=== PATIENT | male | born 1960 | race Caucasian/White ===

== ENCOUNTER 2017-04-05 09:36 | Emergency (ER) | payer MEDICAID ==
[2017-04-05 10:08] LABS: BASOPHIL# 0.1 X 10^3uL (0.0-0.1); BASOPHILS 0.6 % (0.0-2.0); EOSINOPHILS 2.9 % (0.0-6.0); EOSINOPHILS# 0.3 X 10^3uL (0.0-0.4); HEMATOCRIT 46.3 % (42.0-54.0); HEMOGLOBIN 15.8 g/dL (14.0-18.0); LYMPHOCYTES 17.3 % (20.0-40.0); LYMPHOCYTES# 1.5 X 10^3uL (0.8-3.8); MEAN CELL VOLUME 86.5 fL (80.0-100.0); MEAN CORPUS. HGB CONCENTRATION 34.2 g/dL (32.0-36.0); MEAN CORPUSCULAR HEMOGLOBIN 29.5 pg (29.0-35.0); MONOCYTES 7.3 % (2.0-10.0); MONOCYTES# 0.6 X 10^3uL (0.2-1.0); NEUTROPHILS 71.9 % (54.0-75.0); NEUTROPHILS# 6.3 X 10^3uL (2.6-6.7); PLATELET COUNT 255 X 10^3uL (130-440); RED BLOOD COUNT 5.36 X 10^6uL (4.20-6.10); RED CELL DISTRIBUTION WIDTH 12.5 % (11.5-14.5); WHITE BLOOD COUNT 8.8 X 10^3uL (3.9-10.7)
[2017-04-05 10:10] LABS: BLOOD UREA NITROGEN 29 mg/dL (9-20); CALCIUM 8.8 mg/dL (8.4-10.2); CHLORIDE 100 mmol/L (98-107); CREATININE 1.4 mg/dL (0.7-1.3); EST GLOMERULAR FILTRATION RATE 56 mL/min; MAGNESIUM 1.9 mg/dL (1.6-2.3); POTASSIUM 4.3 mmol/L (3.5-5.1); SODIUM 136 mmol/L (137-145)
--- NOTE | 2017-04-05 10:11 | RADIOLOGY REPORT ---
HISTORY: Chest pain COMPARISON: None. FINDINGS: 1 view of the chest obtained. The heart size is within normal limits. Lungs are underexpanded but wit hout acute infiltrate. There is mild diffuse airways thickening. Mild degenerative disease involves t he acromioclavicular joint. There is no pneumothorax. IMPRESSION: Pulmonary underexpansion, without acute disease. Final Electronic Signature: This report was electronically signed by Jonny Dale MD on 04/05/2017 10:09 AM. nakia /
[2017-04-05 10:29] LABS: INR 1.1
[2017-04-05 10:30] LABS: GLUCOSE 281 mg/dL (70-100); TROPONIN I < 0.012 ng/mL (0.00-0.034)
--- NOTE | 2017-04-05 11:47 | ER NURSING DOCUMENTATION ---
Nurse's Notes Name:Rafi Peralta Age:56 yrs Sex:Male :1960 Arrival Date:04/05/2017 Time:09:36 BedRadiology Private MD:Gaston Huffman Diagnosis:Chest Pain Presentation: 04/05 09:40 Acuity: SHAREE 2 st 09:49 Presenting complaint: [facility] Staff reports patient had sudden onset of cp with left arm lpr and jaw pain. Transition of care: [facility]. AIR CAT ACTIVATION no. 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 09:49 Method Of Arrival: Wheelchair lpr Triage Assessment: 09:50 General: Appears uncomfortable, Behavior is cooperative. Pain: Complains of pain in lpr chest and left arm and left ljaw. EENT: Oral mucosa is moist. Neuro: Level of Consciousness is awake, alert, obeys commands, Oriented to person, place, event. Cardiovascular: Capillary refill < 3 seconds Reports no chest pain at this time Rhythm is sinus rhythm. Respiratory: Airway is patent Respiratory effort is even, unlabored, Respiratory pattern is regular, symmetrical. GI: No deficits noted. : No deficits noted. Derm: Skin is healthy with good turgor, Skin is pink, warm & dry. Musculoskeletal: Circulation, motion, and sensation intact Capillary refill < 3 seconds. Historical: - Allergies: Simvastatin; Norvasc; - Home Meds: 1. pravastatin 20 mg oral tab 1 tab once daily 2. aspirin 81 mg oral tab 1 tab once daily 3. metformin 1,000 mg oral tab 1 tab 2 times per day 4. citalopram 40 mg oral tab 1 tab once daily 5. felodipine 5 mg oral Tb24 1 tab once daily 6. hydrochlorothiazide 12.5 mg oral tab 1 tab once daily 7. Levemir flexpen 8. lispro 9. latanoprost 10. valsartan 320 mg oral tab 1 tab once daily - PMHx: Diabetes - IDDM; Hypertension; Hyperlipidemia; ANXIETY; DEPRESSION; GLAUCOMA; OBESITY; SLEEP APNEA; - PSHx: CARPAL TUNNEL REPAIR; Angiogram; LUMBAR SPINE SURGERY; - Tetanus: < 10 years. - Ebola Screening: : No symptoms or risks identified at this time. . - Social history: Smoking status: Patient states was never smoker of tobacco. - Immunization history: Pneumococcal vaccine is up to date, Flu Vaccine < 1 year. Screenin:08 Infectious Disease Risk None. Abuse screen: Denies threats or abuse. Denies injuries lp from another. Nutritional screening: No deficits noted. Assessment: 09:58 Pain: Pain does not radiate. Pain began 1 hour ago. lp Vital Signs: 09:45 BP 136 / 79 (auto/); lpr 09:46 Pulse 67 MON; Resp 22; Pulse Ox 95% ; lpr 09:51 BP 136 / 79; Pulse 65; Resp 22; Temp 98(O); Pulse Ox 93% on 2 lpm NC; Weight 106.14 kg lpr (R); Height 5 ft. 9 in. (175.26 cm) (R); Pain 0/10; 10:15 BP 127 / 85 (auto/); lpr 10:16 Pulse 62 MON; Resp 17; Pulse Ox 94% ; Pain 0/10; lpr 10:36 BP 130 / 75 (auto/); lp 10:36 Pulse 62 MON; Resp 16; Pulse Ox 95% ; lp 11:00 BP 128 / 71 (auto/); lp 11:01 Pulse 60 MON; Resp 16; Pulse Ox 94% ; lp 09:51 Body Mass Index 34.56 (106.14 kg, 175.26 cm) lpr ED Course: 09:38 Patient arrived in ED. ama 09:39 Gaston Huffman MD is Private Physician. ama 09:40 Nano Cao, RN is Primary Nurse. st 09:[address] 09:40 EKG done. (by ED staff). Reviewed by Lavelle Reyna MD. Inserted saline lock: 20 gauge in lpr right antecubital area and blood collected. 09:48 Lavelle Reyna MD is Attending Physician. sc 09:56 Port Xray Completed. hz 10:08 Oxygen Oxygen administration via nasal cannula @ 2L/min. lp 10:08 Valuables Remains with patient Patient has correct armband on for positive lp identification. Placed in gown. Bed in low position. Call light in reach. Cardiac Monitoring On for Nurse Monitoring only. Pulse Ox - RN Monitoring Only NIBP On - RN Monitoring Only. 10:23 EKG attached lp 10:59 Gaston Huffman MD is Referral Physician. sc Administered Medications: No medications were administered Outcome: 10:59 Discharge ordered by . sc 11:25 Discharged to shelter. Report called to Floor JASON boone 11:25 Condition: stable 11:25 Instructed on discharge instructions, follow up and referral plans. 11:46 Patient left the ED. lp Signatures: Nano Cao RN RN st Pavlish, Lena, RN RN lp Chew, Scott, MD MD sc Roberts, Leslie, RN RN lpr Averdick, Andrew, Reg Reg amMiryam Cordova
--- NOTE | 2017-04-05 11:47 | ER PHYSICIAN DOCUMENTATION ---
Physician Documentation [facility] Name:Rafi Peralta Age:56 yrs Sex:Male :1960 Arrival Date:04/05/2017 [facility]09[facility] MD:Gaston Huffman Lavelle Reeder Disposition: 04/05 10:12 Critical Care: not applicable. sc Disposition: 04/05/17 10:59 Discharged to [facility]. Impression: Chest Pain. - Condition is Good. - Discharge Instructions: CHEST PAIN, Uncertain Cause. - Medical Reconciliation form form. - Follow up: Gaston Huffman MD; When: Upon discharge from the Emergency Department; Reason: Continuance of care. - Problem is new. - Symptoms are resolved. HPI: 10:08 This 56 yrs old Male presents to ER via Wheelchair with complaints of Chest sc Pain. 10:08 The patient or guardian reports chest pain that is located primarily in the anterior sc chest wall. Onset: just prior to arrival. The pain radiates to the left arm, left jaw. There has been no movement of pain. Associated signs and symptoms: The patient has no apparent associated signs or symptoms. 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 Duration: The patient or guardian reports a single episode, that lasted 10 minute(s). Modifying factors: The symptoms are alleviated by nothing. Severity of pain: At its worst the pain was moderate in the emergency department the pain has resolved. Historical: - Allergies: Simvastatin; Norvasc; - Home Meds: 1. pravastatin 20 mg oral tab 1 tab once daily 2. aspirin 81 mg oral tab 1 tab once daily 3. metformin 1,000 mg oral tab 1 tab 2 times per day 4. citalopram 40 mg oral tab 1 tab once daily 5. felodipine 5 mg oral Tb24 1 tab once daily 6. hydrochlorothiazide 12.5 mg oral tab 1 tab once daily 7. Levemir flexpen 8. lispro 9. latanoprost 10. valsartan 320 mg oral tab 1 tab once daily - PMHx: Diabetes - IDDM; Hypertension; Hyperlipidemia; ANXIETY; DEPRESSION; GLAUCOMA; OBESITY; SLEEP APNEA; - PSHx: CARPAL TUNNEL REPAIR; Angiogram; LUMBAR SPINE SURGERY; - Tetanus: < 10 years. - Ebola Screening: : No symptoms or risks identified at this time. . - Social history: Smoking status: Patient states was never smoker of tobacco. - Immunization history: Pneumococcal vaccine is up to date, Flu Vaccine < 1 year. ROS: 10:09 Constitutional: Negative for fever, chills, and weight loss. sc Eyes: Negative for injury, pain, redness, and discharge. ENT: Negative for injury, pain, and discharge. Neck: Negative for injury, pain, and swelling. Respiratory: Negative for shortness of breath, cough, wheezing, and pleuritic chest pain. Abdomen/GI: Negative for abdominal pain, nausea, vomiting, diarrhea, and constipation. Back: Negative for injury and pain. MS/Extremity: Negative for injury and deformity. Skin: Negative for injury, rash, and discoloration. 10:09 Neuro: Negative for headache, weakness, numbness, tingling, and seizure. sc 10:09 Cardiovascular: Positive for chest pain. Exam: Constitutional: This is a well developed, well nourished patient who is awake, alert, and in no acute distress. Head/Face: Normocephalic, atraumatic. Eyes: Pupils equal round and reactive to light, extra-ocular motions intact. Lids and lashes normal. Conjunctiva and sclera are non-icteric and not injected. Cornea within normal limits. Periorbital areas with no swelling, redness, or edema. ENT: Nares patent. No nasal discharge, no septal abnormalities noted. Tympanic membranes are normal and external auditory canals are clear. Oropharynx with no redness, swelling, or masses, exudates, or evidence of obstruction, uvula midline. Mucous membranes moist. Neck: Trachea midline, no thyromegaly or masses palpated, and no cervical lymphadenopathy. Supple, full range of motion without nuchal rigidity, or vertebral point tenderness. No meningismus. Chest/axilla: Normal chest wall appearance and motion. Nontender with no deformity. No lesions are appreciated. Abdomen/GI: Soft, non-tender, with normal bowel sounds. No distension or tympany. No guarding or rebound. No evidence of tenderness throughout. Back: No spinal tenderness. No costovertebral tenderness. Full range of motion. Skin: Warm, dry with normal turgor. Normal color with no rashes, no lesions, and no evidence of cellulitis. MS/ Extremity: Pulses equal, no cyanosis. Neurovascular intact. Full, normal range of motion, negative Homans's, calves equal bilaterally. 10:09 Neuro: Awake and alert, GCS 15, oriented to person, place, time, and situation. nv Cranial nerves II-XII grossly intact. Motor strength 5/5 in all extremities. Sensory grossly intact. Cerebellar exam normal. Normal gait. 10:09 Cardiovascular: Rate: normal, Rhythm: regular. 10:09 Respiratory: the patient does not display signs of respiratory distress, Respirations: normal, Breath sounds: are normal, clear throughout. Vital Signs: 09:45 BP 136 / 79 (auto/); lpr 09:46 Pulse 67 MON; Resp 22; Pulse Ox 95% ; lpr 09:51 BP 136 / 79; Pulse 65; Resp 22; Temp 98(O); Pulse Ox 93% on 2 lpm NC; Weight 106.14 kg lpr (R); Height 5 ft. 9 in. (175.26 cm) (R); Pain 0/10; 10:15 BP 127 / 85 (auto/); lpr 10:16 Pulse 62 MON; Resp 17; Pulse Ox 94% ; Pain 0/10; lpr 10:36 BP 130 / 75 (auto/); lp 10:36 Pulse 62 MON; Resp 16; Pulse Ox 95% ; lp 11:00 BP 128 / 71 (auto/); lp 11:01 Pulse 60 MON; Resp 16; Pulse Ox 94% ; lp 09:51 Body Mass Index 34.56 (106.14 kg, 175.26 cm) lpr MDM: 09:48 Patient medically screened. nv 10:10 Differential diagnosis: abnormal EKG, acute myocardial infarction, anxiety, chest wall sc pain, gastroesophageal reflux disease (GERD). Patient took aspirin within the past 24 hours. Patient did not receive fibrinolytic due to na. Data reviewed: vital signs, nurses notes, lab test result(s), EKG, radiologic studies, and as a result, I will continue to observe the patient. 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 ECG:. 10:23 EKG attached lp 10:55 Physician consultation: Gaston Huffman MD was called at 10:55, was contacted at 10:55, nv regarding patient's condition, and will see patient shortly, Dr. Huffman feels less disruptive for pt to return to [facility] and get repeat EKG and trop there with cardiology consult. Patient still pain free.. 04/05 10:22 Order name: DDIMER; Complete Time: 10:52 EDMS 04/05 10:52 Interpretation: Normal. nv 04/05 10:30 Order name: CBC AUTO DIF, MDIF/RMOR IF IND; Complete Time: 10:52 EDMS 04/05 10:52 Interpretation: Normal. nv 04/05 10:32 Order name: BASIC METABOLIC PANEL; Complete Time: 10:52 EDMS 04/05 10:52 Interpretation: Normal Except: BLOOD UREA NITROGEN 29; CREATININE 1.4. nv 04/05 10:32 Order name: MAGNESIUM; Complete Time: 10:52 EDMS 04/05 10:52 Interpretation: Normal. nv 04/05 10:32 Order name: TROPONIN I; Complete Time: 10:52 EDMS 04/05 10:52 Interpretation: Normal. nv 04/05 10:33 Order name: PROTIME/INR; Complete Time: 10:52 EDMS 04/05 10:52 Interpretation: Normal. nv 04/05 10:13 Order name: CHEST; SINGLE VIEW [id number]; Complete Time: 10:52 EDMS 04/05 10:52 Interpretation: Normal. nv 04/05 09:49 Order name: 12-lead EKG; Complete Time: 10:25 nv 04/05 09:49 Order name: Iv Saline Lock; Complete Time: 10:25 nv 04/05 09:49 Order name: Place Patient On Monitor; Complete Time: 10:25 nv 04/05 09:49 Order name: Pulse Ox Continuous; Complete Time: 10:25 nv EC:10 Rate is 68 beats/min. Rhythm is regular, Normal Sinus Rhythm with Left bundle branch sc block. QRS [place] is Normal. OR interval is normal. QRS interval is prolonged at .12 msec. QT interval is normal. Q waves are Present. Q waves are Old. T waves are Normal. No ST changes noted. Clinical impression: Abnormal EKG without significant change. Interpreted by me. Reviewed by me. Dispensed Medications: No medications were administered Signatures: Anita Carmona RN RN lp Lavelle Reyna MD MD sc Roberts, Leslie, RN RN lpr
== END 2017-04-05 11:47 ==
LOC: ER 09:36
DX: R07.9 Chest pain, unspecified (principal); R68.84 Jaw pain; M79.602 Pain in left arm; I10 Essential (primary) hypertension; E11.9 Type 2 diabetes mellitus without complications; E66.9 Obesity, unspecified; Z79.82 Long term (current) use of aspirin; Z79.899 Other long term (current) drug therapy
CPT/HCPCS: 71010; 80048; 83735; 84484; 85025; 85379; 85610; 93005; 99284

== ENCOUNTER 2017-04-16 13:14 | Emergency (ER) | payer MEDICAID ==
[2017-04-16] MEDS ORDERED: ALTEPLASE 100 MG/100 ML VIAL IV ONE (13:59)
[2017-04-16 14:03] LABS: BASOPHIL# 0.1 X 10^3uL (0.0-0.1); BASOPHILS 0.7 % (0.0-2.0); EOSINOPHILS 3.1 % (0.0-6.0); EOSINOPHILS# 0.3 X 10^3uL (0.0-0.4); HEMATOCRIT 45.2 % (42.0-54.0); HEMOGLOBIN 15.6 g/dL (14.0-18.0); LYMPHOCYTES 17.3 % (20.0-40.0); LYMPHOCYTES# 1.7 X 10^3uL (0.8-3.8); MEAN CELL VOLUME 86.7 fL (80.0-100.0); MEAN CORPUS. HGB CONCENTRATION 34.6 g/dL (32.0-36.0); MEAN PLATELET VOLUME 8.8 fL (7.4-10.4); MONOCYTES 8.1 % (2.0-10.0); MONOCYTES# 0.8 X 10^3uL (0.2-1.0); NEUTROPHILS 70.8 % (54.0-75.0); RED BLOOD COUNT 5.22 X 10^6uL (4.20-6.10); RED CELL DISTRIBUTION WIDTH 12.4 % (11.5-14.5); WHITE BLOOD COUNT 9.9 X 10^3uL (3.9-10.7)
--- NOTE | 2017-04-16 14:08 | CT REPORT ---
HISTORY: Numbness COMPARISON: 12/08/2015 TECHNIQUE: Axial non-contrast images obtained from skull vertex through foramen magnum. Dose reduction technique was utilized. FINDINGS: There is chronic encephalomalacia in the left cerebellar hemisphere compatible with old infarct. Mode rate volume loss and patchy subcortical white matter hypoattenuation again seen. There is a slightly greater degree of focal subcortical white matter hypoattenuation in the right parietal region on seri es 2 image 22 however the overlying cortex appears intact. An interval subcortical infarct is possibl e and may warrant further characterization with a dedicated MRI. There is also a new age indeterminan t subcortical infarct in the left ortiz radiata on series 2 image 22. No large acute cortical infarct seen. No hemorrhage or midline shift. No mass lesion observed. Chroni c right thalamus lacunar infarct is seen on series 2 image 18 which appears unchanged. There appears to be a chronic left pontine infarct, unchanged from prior. Intracranial atherosclerosis is present. No asymmetrically dense vessel seen. No extra-axial fluid co llection. The skull base and the calvarium appear intact. Paranasal sinuses demonstrate a retention cyst in the left maxillary sinus but appear otherwise normal. Mastoid air cells are normal. IMPRESSION: 1. Extensive age accelerated white matter disease. 2. There is a new age indeterminant infarct in the left ortiz radiata and a greater degree of subcor tical white matter hypoattenuation the right parietal lobe with interval subcortical infarct not excl uded. This may warrant further characterization with an MRI. 3. Additional chronic infarcts are unchanged as detailed above. 4. No intracranial hemorrhage, midline shift or mass lesion. Final Electronic Signature: This report was electronically signed by Felice Pimentel MD on 04/16/2017 2:06 PM. sameer /
[2017-04-16 14:22] LABS: POTASSIUM 4.2 mmol/L (3.5-5.1)
[2017-04-16] MEDS ORDERED: NORMAL SALINE 100 ML IV ONE (14:49)
--- NOTE | 2017-04-16 14:55 | ER NURSING DOCUMENTATION ---
Nurse's Notes [facility] Name:Rafi Peralta Age:56 yrs Sex:Male :1960 Arrival Date:04/16/2017 Time:13:14 Bed4 Private MD:Gaston Huffman Diagnosis:Cerebrovascular Accident (CVA) Presentation: 04/16 13:18 Acuity: SHAREE 2 la 13:18 Presenting complaint: radiology director at [facility] having lunch with pt. states prior to la noon he was acting WNLs, around noon she noted that he was drooling liquid out on the left side of his mouth and had a hard time swallowing. pt with left sided facial droop, tongue deviates to the left, right arm drift, speech slurred, left side of face feels numb. Transition of care: [facility]. 13:18 Method Of Arrival: Wheelchair la 14:18 Time Last Known Well for patient was 1200. la Triage Assessment: 13:18 The onset of the patients symptoms was less than three hours ago. la 13:59 General: Appears comfortable. la Historical: - Allergies: Simvastatin; Norvasc; - Home Meds: 1. pravastatin 20 mg oral tab 1 tab once daily 2. aspirin 81 mg oral tab 1 tab once daily 3. metformin 1,000 mg oral tab 1 tab 2 times per day 4. citalopram 40 mg oral tab 1 tab once daily 5. felodipine 5 mg oral Tb24 1 tab once daily 6. hydrochlorothiazide 12.5 mg oral tab 1 tab once daily 7. Levemir flexpen 8. latanoprost 9. valsartan 320 mg oral tab 1 tab once daily - PMHx: DIABETES - IDDM; HYPERTENSION; Hyperlipidemia; ANXIETY; DEPRESSION; GLAUCOMA; OBESITY; SLEEP APNEA; - PSHx: CARPAL TUNNEL REPAIR; - Tetanus: unable to assess. - Ebola Screening: : Unable to complete screening because. - Immunization history: Unable to Obtain. - Social history: Smoking status: unknown if patient ever smoked tobacco. Screenin:03 Infectious Disease Risk Unable to Obtain. Abuse screen: Unable to Obtain. Nutritional la screening: No deficits noted. Assessment: 13:23 General: Appears comfortable, Behavior is appropriate for age, cooperative, pleasant, la glucose per [facility] 157. Pain: Denies pain. Neuro: Level of Consciousness is awake, alert, Oriented to person, place, Slip Cover Sewer are equal bilaterally Moves all extremities. Speech is slurred, . Facial droop on left, tongue deviates to the left. arm drift on righ arm. EENT: No deficits noted. Cardiovascular: Rhythm is sinus rhythm Chest pain is denied. Respiratory: Airway is patent Trachea midline Breath sounds are clear. GI: No deficits noted. : No deficits noted. Derm: No deficits noted. Musculoskeletal: No deficits noted. 13:30 Reassessment: to CT with Yocasta Ma RN. la 14:17 Neuro: Level of Consciousness is awake, alert, obeys commands, Oriented to person, la place, Slip Cover Sewer are equal bilaterally Moves all extremities. Speech is slurred, Facial droop on left, Pupils are PERRLA. 14:24 Neuro: Level of Consciousness is awake, alert, obeys commands, Oriented to person, la place, Slip Cover Sewer are equal bilaterally Moves all extremities. Speech is slurred, Facial droop on left, Pupils are PERRLA. 14:31 Cardiovascular: Rhythm is sinus rhythm. la 14:31 Neuro: Level of Consciousness is awake, alert, obeys commands, Oriented to person, la place, Slip Cover Sewer are equal bilaterally Moves all extremities. Speech is slurred, Facial droop on left, Pupils are PERRLA. 14:47 Reassessment: EP Critical transport here to take pt to [facility] for higher la level of care.. 14:47 Neuro: Level of Consciousness is awake, alert, obeys commands, Oriented to person, la place, Slip Cover Sewer are equal bilaterally Moves all extremities. Speech is slurred, Facial droop on left, Pupils are PERRLA. Vital Signs: 13:15 BP 153 / 97 RA Sitting; Pulse 77; Resp 18; Temp 98.3(O); Pulse Ox 94% ; Weight 118.39 la kg (M); Height 5 ft. 9 in. (175.26 cm) (R); Pain 0/10; 14:05 BP 132 / 80 RA Sitting; Pulse 70; Resp 18 S; Pulse Ox 94% on R/A; Pain 0/10; la 14:16 BP 145 / 80 LA Sitting; Pulse 69; Resp 18 S; Pulse Ox 93% ; Pain 0/10; la 14:23 BP 145 / 76 LA Sitting; Pulse 68; Resp 18; Pulse Ox 96% on R/A; Pain 0/10; la 14:30 BP 131 / 78 LA Sitting; Pulse 72; Resp 18; Pulse Ox 94% on R/A; Pain 0/10; la 13:15 Body Mass Index 38.54 (118.39 kg, 175.26 cm) la NIH Stroke Scale Scores: 14:04 NIHSS Score: 8 ED Course: 13:15 Patient arrived in ED. ma1 13:15 Gaston Huffman MD is Private Physician. ma1 13:17 Juan Beal MD is Attending Physician. clay 13:17 Chayo Owusu is Primary Nurse. la 13:18 Triage completed. la 13:[address] dnn 13:30 Patient moved back from CT. dnn 13:50 Inserted saline lock: 20 gauge in left hand and blood collected. la 14:00 EKG done. (by ED staff). Reviewed by Juan Beal MD. la 14:02 Inserted saline lock: 20 gauge in right antecubital area. la 14:03 Valuables sent with patient Patient has correct armband on for positive identification. la Bed in low position. Call light in reach. Side rails up X2. teletypesetter monitor on. Pulse ox on. NIBP on. Noise minimized. Verbal reassurance given. Pillow given. 14:27 EKG attached Administered Medications: 14:11 Drug: tPA BOLUS - Alteplase 9 mg; Route: IVP; Site: right antecubital; la 14:12 Follow up: Response: No adverse reaction la 14:12 Drug: tPA DRIP - Alteplase 81 mg; Route: IV; Rate: calculated rate; Site: right la antecubital; 14:22 Follow up: Response: No adverse reaction la 14:40 Follow up: Response: No adverse reaction la 14:51 Follow up: IV Status: Completed infusion; IV Intake: 81ml la 14:51 Follow up: Response: No adverse reaction la 14:52 Drug: NS 0.9% 100 ml; Volume: 100 ml; Route: IV; Rate: bolus; Site: right antecubital; la 14:52 Follow up: IV Status: Infusing continued upon transfer la Intake: 14:51 IV: 81ml; Total: 81ml. la Outcome: 14:31 ER care complete, transfer ordered by . clay 14:54 Patient left the ED. rh 14:58 Transferred: Patient will be transferred to: [facility]. Facility la Acceptance Time: April 16, 2017 at 14:20 Patient's face sheet was faxed to accepting facility. Face Sheet included patient's name, address, age, gender, contact information and insurance information. Patient will be transported by: [facility] [place]. Other Critical Care Report called to: Zulma GOMEZ Nurse and Physician Charting and Notes were sent to Accepting Facility. All tests and/or procedures with results, if applicable, were sent to accepting facility. 14:58 Report given to Zulma GOMEZ NIH Stroke Scale - NIH Stroke Score Date: 04/16/2017 Time: 14:04 Total Score = 8 1a. Level of Consciousness (LOC) - 0(Alert) 1b. Level of Consciousness (LOC) (Year & Age) - 2(Neither) 1c. LOC Commands (Open & Closes Eyes/Stations Superintendent) - 0(Both) 2. Best Gaze (Lateral Gaze Paresis) - 0(Normal) 3. Visual Field Loss - 0(No visual loss) 4. Facial Palsy - 1(Minor Paralysis) 5a. Left Arm: Motor (10-second hold) - 0(No drift) 5b. Right Arm: Motor (10-second hold) - 1(Drift) 6a. Left Leg: Motor (5-second hold ? always test supine) - 0(No drift) 6b. Right Leg: Motor (5-second hold ? always test supine) - 0(No drift) 7. Limb Ataxia (finger/nose & heel/nicholson ? test with eyes open) - 0(Absent) 8. Sensory Loss (pinprick arms/legs/face) - 1(Mild to moderate loss) 9. Best Language: Aphasia (description/naming/reading) - 1(Mild to moderate aphasia) 10. Dysarthria (speech clarity ? read or repeat words) - 1(Mild to Moderate) 11. Extinction and Inattention (visual/tactile/auditory/spatial/personal) - 1(Present) Initials: hoang Signatures: Chayo Landers RN RN lc Meyer, John, MD MD jm Roberts, Leslie, RN RN lpr Norman, David dnn Alexander, Linda la Hofsess, Rachel rh Addison, Isadora esparza
--- NOTE | 2017-04-16 14:55 | ER PHYSICIAN DOCUMENTATION ---
Physician Documentation [facility] Name:Rafi Peralta Age:56 yrs Sex:Male :1960 Arrival Date:04/16/2017 Time:13:14 Bed4 Private MD:Gaston Huffman ED, John Disposition: 04/16/17 14:31 Transfer ordered to [facility]. Diagnosis is Cerebrovascular Accident (CVA). - Reason for transfer: Specialty. - Accepting physician is Dr. Barrios. - Condition is Serious. - Problem is new. - Symptoms are unchanged. COBRA Form completed? Yes Transfer - Mode of Transportation Ambulance HPI: 04/16 13:57 This 56 yrs old Male presents to ER via Wheelchair with complaints of jm Numbness. 13:57 The patient presents to the emergency department with weakness of the a speech or jm higher order brain function problem. Onset: The symptom(s)/episode began/occurred just prior to arrival. Context: occurred while the patient was sitting. Associated signs and symptoms: Pertinent positives: weakness, . Severity of symptoms: in the emergency department the symptoms are unchanged. Patient's baseline: normal. Current symptoms: dysphasia. The patient has not experienced similar symptoms in the past. The patient has not recently seen a physician. Pt was at lunch at [facility] when he acutely started drooling. They called and brought him here. . Historical: - Allergies: Simvastatin; Norvasc; - Home Meds: 1. pravastatin 20 mg oral tab 1 tab once daily 2. aspirin 81 mg oral tab 1 tab once daily 3. metformin 1,000 mg oral tab 1 tab 2 times per day 4. citalopram 40 mg oral tab 1 tab once daily 5. felodipine 5 mg oral Tb24 1 tab once daily 6. hydrochlorothiazide 12.5 mg oral tab 1 tab once daily 7. Levemir flexpen 8. latanoprost 9. valsartan 320 mg oral tab 1 tab once daily - PMHx: DIABETES - IDDM; HYPERTENSION; Hyperlipidemia; ANXIETY; DEPRESSION; GLAUCOMA; OBESITY; SLEEP APNEA; - PSHx: CARPAL TUNNEL REPAIR; - Tetanus: unable to assess. - Ebola Screening: : Unable to complete screening because. - Immunization history: Unable to Obtain. - Social history: Smoking status: unknown if patient ever smoked tobacco. ROS: 14:07 Constitutional: Negative for fatigue, fever. 14:07 Cardiovascular: Negative for chest pain. 14:07 Respiratory: Negative for cough, shortness of breath. 14:07 Abdomen/GI: Negative for abdominal pain. 14:07 Neuro: Positive for numbness, speech changes. 14:07 Psych: Negative for anxiety, depression. 14:07 All other systems are negative. Exam: 14:08 Constitutional: The patient appears alert, awake. 14:08 Eyes: Pupils: equal, round, and reactive to light and accomodation, Extraocular movements: intact throughout. 14:08 ENT: Mouth: assymetric. 14:08 Chest/axilla: Palpation: is normal. 14:08 Cardiovascular: Rate: normal, Rhythm: regular. 14:08 Respiratory: the patient does not display signs of respiratory distress, Respirations: normal. 14:08 Abdomen/GI: Bowel sounds: normal, Palpation: abdomen is soft and non-tender. 14:08 Musculoskeletal/extremity: Pulses: are normal with no appreciated deficits, numbness. 14:08 Neuro: Cranial nerves: normal except tongue deviation to the L, L facial droop. L numbness, dysarthria. , Cerebellar function: dysmetria is noted on the left, Motor: strength is 5/5 in all extremities, but drift on the L. , Sensation: L facial numbness. 14:08 Psych: Behavior/mood is pleasant, cooperative, Affect is flat, abulia . Vital Signs: 13:15 BP 153 / 97 RA Sitting; Pulse 77; Resp 18; Temp 98.3(O); Pulse Ox 94% ; Weight 118.39 la kg (M); Height 5 ft. 9 in. (175.26 cm) (R); Pain 0/10; 14:05 BP 132 / 80 RA Sitting; Pulse 70; Resp 18 S; Pulse Ox 94% on R/A; Pain 0/10; la 14:16 BP 145 / 80 LA Sitting; Pulse 69; Resp 18 S; Pulse Ox 93% ; Pain 0/10; la 14:23 BP 145 / 76 LA Sitting; Pulse 68; Resp 18; Pulse Ox 96% on R/A; Pain 0/10; la 14:30 BP 131 / 78 LA Sitting; Pulse 72; Resp 18; Pulse Ox 94% on R/A; Pain 0/10; la 13:15 Body Mass Index 38.54 (118.39 kg, 175.26 cm) la NIH Stroke Scale Scores: 14:04 NIHSS Score: 8 MDM: 13:17 Patient medically screened. 14:22 Thrombolytics: Patient received thrombolytic within the Emergency Department. Data clay reviewed: vital signs, nurses notes, old medical records, lab test result(s), EKG, radiologic studies, and as a result, I will *Transfer Patient. Test interpretation: by ED physician or midlevel provider: ECG. Counseling: I had a detailed discussion with the patient and/or guardian regarding: the historical points, exam findings, and any diagnostic results supporting the discharge/admit diagnosis, lab results, radiology results, the need to transfer to another facility. ECG:. Physician consultation: Dr Barrios was called at 14:15, was contacted at 14:20. ED course: Pt w/o bleed, so TpA given. We cannot fly, so we will transport by ground. . 14:27 EKG attached 04/16 14:18 Order name: CBC AUTO DIF, MDIF/RMOR IF IND; Complete Time: 14:31 [facility] 04/16 14:24 Order name: BASIC METABOLIC PANEL; Complete Time: 14:31 [facility] 04/16 14:25 Order name: PROTIME/INR; Complete Time: 14:31 [facility] 04/16 14:10 Order name: CAT SCAN; HEAD W/O CON 80824; Complete Time: 14:31 [facility] 04/16 13:18 Order name: 12-lead EKG; Complete Time: 14:03 04/16 13:18 Order name: Continuous Cardiac Monitoring; Complete Time: 14:03 04/16 13:18 Order name: I & O; Complete Time: 14:03 04/16 13:18 Order name: NIH Stroke Scale; Complete Time: 14:03 04/16 13:18 Order name: NPO; Complete Time: 14:03 04/16 13:18 Order name: Pulse Ox Continuous; Complete Time: 14:03 04/16 13:18 Order name: Stroke Team Activation Overhead; Complete Time: 14:03 04/16 14:14 Order name: tPA: Check with MD 1st < giving; Consent signed?; Complete Time: 14:22 lpr EC:22 Rhythm is regular. QRS [place] is Normal. SD interval is normal. QRS interval is normal. jm QT interval is normal. No Q waves. T waves are Normal. No ST changes noted. Dispensed Medications: 14:11 Drug: tPA BOLUS - Alteplase 9 mg; Route: IVP; Site: right antecubital; la 14:12 Follow up: Response: No adverse reaction la 14:12 Drug: tPA DRIP - Alteplase 81 mg; Route: IV; Rate: calculated rate; Site: right la antecubital; 14:22 Follow up: Response: No adverse reaction la 14:40 Follow up: Response: No adverse reaction la 14:51 Follow up: IV Status: Completed infusion; IV Intake: 81ml la 14:51 Follow up: Response: No adverse reaction la 14:52 Drug: NS 0.9% 100 ml; Volume: 100 ml; Route: IV; Rate: bolus; Site: right antecubital; la 14:52 Follow up: IV Status: Infusing continued upon transfer la NIH Stroke Scale - NIH Stroke Score Date: 04/16/2017 Time: 14:04 Total Score = 8 1a. Level of Consciousness (LOC) - 0(Alert) 1b. Level of Consciousness (LOC) (Year & Age) - 2(Neither) 1c. LOC Commands (Open & Closes Eyes/Team Facilitator) - 0(Both) 2. Best Gaze (Lateral Gaze Paresis) - 0(Normal) 3. Visual Field Loss - 0(No visual loss) 4. Facial Palsy - 1(Minor Paralysis) 5a. Left Arm: Motor (10-second hold) - 0(No drift) 5b. Right Arm: Motor (10-second hold) - 1(Drift) 6a. Left Leg: Motor (5-second hold ? always test supine) - 0(No drift) 6b. Right Leg: Motor (5-second hold ? always test supine) - 0(No drift) 7. Limb Ataxia (finger/nose & heel/nicholson ? test with eyes open) - 0(Absent) 8. Sensory Loss (pinprick arms/legs/face) - 1(Mild to moderate loss) 9. Best Language: Aphasia (description/naming/reading) - 1(Mild to moderate aphasia) 10. Dysarthria (speech clarity ? read or repeat words) - 1(Mild to Moderate) 11. Extinction and Inattention (visual/tactile/auditory/spatial/personal) - 1(Present) Initials: lc Signatures: Chayo Landers RN RN Juan Gonzales MD MD jm Roberts, Leslie, RN RN lpr Alexander, Linda la Hofsess, Rachel rh
== END 2017-04-16 14:54 | disposition short-term general hospital (02) ==
LOC: ER 13:14
DX: I63.50 Cerebral infarction due to unspecified occlusion or stenosis of unspecified cerebral artery (principal); R29.708 NIHSS score 8; I44.7 Left bundle-branch block, unspecified; E10.9 Type 1 diabetes mellitus without complications; I10 Essential (primary) hypertension; E78.5 Hyperlipidemia, unspecified; E66.9 Obesity, unspecified; Z79.82 Long term (current) use of aspirin; Z79.899 Other long term (current) drug therapy; Z99.89 Dependence on other enabling machines and devices; Z99.81 Dependence on supplemental oxygen; Z74.3 Need for continuous supervision
CPT/HCPCS: 70450; 80048; 85025; 85610; 92977; 93005; 96365; 96375; 96376; 99285; A0425; A0433; J2997